=== PATIENT | male | born 1955 | race Caucasian/White ===

== ENCOUNTER → 2018-03-25 10:08 | Outpatient (CLI) | payer OTHER, SELFPAY ==
[2018-03-25 11:19] LABS: Add Manual Diff / Slide Review NO; Basophils Percent Auto 0.5 % (0-2); Eosinophils Percent Auto 3.9 % (2-4); Hematocrit 41.2 % (41-53); Lymphocytes Percent Auto 22.7 % (25-40); Mean Corpuscular Hemoglobin 31.1 PG (26-34); Mean Corpuscular Volume 91.6 fL (80-100); Monocytes Percent Auto 9.7 % (3-14); Neutrophils Absolute Auto 3600 /uL (3000-5900); Neutrophils Percent Auto 63.2 % (50-75); Platelet Count 208 X10^3/uL (150-400); Red Cell Distribution Width 13.5 % (11.6-14.8); White Blood Cell Count 5.7 X10^3/uL (4.5-11.0)
[2018-03-25 11:35] LABS: Alanine Aminotransferase 65 IU/L (21-72); Albumin 4.8 g/dL (3.5-5.0); Albumin Globulin Ratio 1.9 (1.0-2.8); Alkaline Phosphatase 74 U/L (38-126); Aspartate Aminotransferase 63 IU/L (17-59); BUN Creatinine Ratio 23.8 (6-22); Bilirubin Total 0.9 mg/dL (0.2-1.3); Blood Urea Nitrogen 19 mg/dL (9-20); Calcium 9.5 mg/dL (8.4-10.2); Carbon Dioxide 25 mmol/L (22-32); Chloride 105 mmol/L (98-107); Cholesterol 164 mg/dL (140-199); Estimated Glomerular Filt Rate > 60.0 mL/min (>60); Globulin 2.5 g/dL (1.7-4.1); Glucose 101 mg/dL (80-110); HDL Cholesterol 31 mg/dL (40-60); HEMOLYSIS 24 (0-50); LDL Cholesterol Calculated 99 mg/dL (<100); Sodium 143 mmol/L (137-145); Total Protein 7.3 g/dL (6.3-8.2); Triglycerides 172 mg/dL (35-150)
== END ==
PROVIDERS: Family Provider Internal Medicine; PCP Internal Medicine; Visit Provider Internal Medicine
DX: K75.81 Nonalcoholic steatohepatitis (NASH) (principal); M10.00 Idiopathic gout, unspecified site; E78.00 Pure hypercholesterolemia, unspecified
CPT/HCPCS: 36415; 80053; 80061; 84550; 85025

== ENCOUNTER → 2018-10-30 08:28 | Outpatient (CLI) | payer OTHER, SELFPAY ==
[2018-10-30 10:17] LABS: Alanine Aminotransferase 91 IU/L (21-72); Albumin 4.8 g/dL (3.5-5.0); Albumin Globulin Ratio 1.7 (1.0-2.8); Alkaline Phosphatase 74 U/L (38-126); Aspartate Aminotransferase 75 IU/L (17-59); BUN Creatinine Ratio 22.5 (6-22); Bilirubin Total 0.8 mg/dL (0.2-1.3); Blood Urea Nitrogen 18 mg/dL (9-20); Calcium 9.4 mg/dL (8.4-10.2); Carbon Dioxide 28 mmol/L (22-32); Chloride 104 mmol/L (98-107); Cholesterol 153 mg/dL (140-199); Estimated Glomerular Filt Rate > 60.0 mL/min (>60); Globulin 2.9 g/dL (1.7-4.1); Glucose 109 mg/dL (80-110); HDL Cholesterol 33 mg/dL (40-60); HEMOLYSIS < 15 (0-50); LDL Cholesterol Calculated 81 mg/dL (<100); Potassium 4.3 mmol/L (3.4-5.1); Sodium 142 mmol/L (137-145); Total Protein 7.7 g/dL (6.3-8.2); Triglycerides 196 mg/dL (35-150); Uric Acid 5.5 mg/dL (3.5-8.5)
== END ==
PROVIDERS: Visit Provider Internal Medicine
DX: M10.00 Idiopathic gout, unspecified site (principal); I10 Essential (primary) hypertension; E78.00 Pure hypercholesterolemia, unspecified
CPT/HCPCS: 36415; 80053; 80061; 84550

== ENCOUNTER → 2019-05-08 09:21 | Outpatient (CLI) | payer OTHER, SELFPAY ==
[2019-05-08 10:05] LABS: Alanine Aminotransferase 88 IU/L (21-72); Albumin 4.6 g/dL (3.5-5.0); Albumin Globulin Ratio 1.6 (1.0-2.8); Alkaline Phosphatase 73 U/L (38-126); Aspartate Aminotransferase 92 IU/L (17-59); BUN Creatinine Ratio 22.9 (6-22); Bilirubin Total 0.8 mg/dL (0.2-1.3); Blood Urea Nitrogen 16 mg/dL (9-20); Calcium 9.4 mg/dL (8.4-10.2); Carbon Dioxide 28 mmol/L (22-32); Chloride 104 mmol/L (98-107); Estimated Glomerular Filt Rate > 60.0 mL/min (>60); Globulin 2.9 g/dL (1.7-4.1); Glucose 110 mg/dL (80-110); HEMOLYSIS < 15 (0-50); Potassium 3.9 mmol/L (3.4-5.1); Sodium 141 mmol/L (137-145); Total Protein 7.5 g/dL (6.3-8.2); Uric Acid 5.7 mg/dL (3.5-8.5)
== END ==
PROVIDERS: Visit Provider Internal Medicine
DX: K75.81 Nonalcoholic steatohepatitis (NASH) (principal); M10.00 Idiopathic gout, unspecified site
CPT/HCPCS: 36415; 80053; 84550

== ENCOUNTER → 2020-03-18 10:10 | Outpatient (CLI) | payer OTHER, SELFPAY ==
[2020-03-18 11:39] LABS: Alanine Aminotransferase 127 IU/L (<50); Albumin 4.6 g/dL (3.5-5.0); Albumin Globulin Ratio 1.7 (1.0-2.8); Alkaline Phosphatase 81 U/L (38-126); Aspartate Aminotransferase 115 IU/L (17-59); BUN Creatinine Ratio 18.4 (6-22); Bilirubin Total 0.8 mg/dL (0.2-1.3); Blood Urea Nitrogen 14 mg/dL (9-20); Calcium 9.8 mg/dL (8.4-10.2); Carbon Dioxide 26 mmol/L (22-32); Chloride 104 mmol/L (98-107); Cholesterol 161 mg/dL (140-199); Estimated Glomerular Filt Rate > 60.0 mL/min (>60); Globulin 2.7 g/dL (1.7-4.1); Glucose 112 mg/dL (80-110); HDL Cholesterol 29 mg/dL (40-60); HEMOLYSIS < 15 (0-50); LDL Cholesterol Calculated 92 mg/dL (<100); Potassium 4.3 mmol/L (3.4-5.1); Sodium 139 mmol/L (137-145); Total Protein 7.3 g/dL (6.3-8.2); Triglycerides 199 mg/dL (35-150)
== END ==
PROVIDERS: PCP Internal Medicine; Referring Provider Internal Medicine; Visit Provider Internal Medicine
DX: E66.9 Obesity, unspecified (principal); K75.81 Nonalcoholic steatohepatitis (NASH)
CPT/HCPCS: 36415; 80053; 80061

== ENCOUNTER → 2020-06-13 08:51 | Outpatient (CLI) | payer OTHER, SELFPAY ==
[2020-06-13 09:46] LABS: Hemoglobin A1C% w Est Avg Glu 6.2 % (4.0-6.0)
[2020-06-13 09:54] LABS: Alanine Aminotransferase 79 IU/L (<50); Albumin 4.5 g/dL (3.5-5.0); Albumin Globulin Ratio 1.8 (1.0-2.8); Alkaline Phosphatase 78 U/L (38-126); Aspartate Aminotransferase 69 IU/L (17-59); BUN Creatinine Ratio 18.9 (6-22); Bilirubin Total 0.8 mg/dL (0.2-1.3); Blood Urea Nitrogen 14 mg/dL (9-20); Calcium 9.5 mg/dL (8.4-10.2); Carbon Dioxide 29 mmol/L (22-32); Chloride 105 mmol/L (98-107); Estimated Glomerular Filt Rate > 60.0 mL/min (>60); Globulin 2.5 g/dL (1.7-4.1); Glucose 107 mg/dL (80-110); HEMOLYSIS < 15 (0-50); Potassium 4.6 mmol/L (3.4-5.1); Sodium 140 mmol/L (137-145)
[2020-06-13 16:41] LABS: Hep C Virus Ab w/Reflex Quant NEGATIVE s/c (NEGATIVE)
== END ==
PROVIDERS: PCP Internal Medicine; Referring Provider Internal Medicine; Visit Provider Internal Medicine
DX: K75.81 Nonalcoholic steatohepatitis (NASH) (principal); I10 Essential (primary) hypertension
CPT/HCPCS: 36415; 80053; 83036; 86803

== ENCOUNTER → 2020-10-07 08:28 | Outpatient (CLI) | payer OTHER, SELFPAY ==
[2020-10-07 09:45] LABS: Hemoglobin A1C% w Est Avg Glu 6.5 % (4.0-6.0)
[2020-10-07 09:51] LABS: Alanine Aminotransferase 116 IU/L (<50); Albumin 4.7 g/dL (3.5-5.0); Albumin Globulin Ratio 1.6 (1.0-2.8); Alkaline Phosphatase 84 U/L (38-126); Aspartate Aminotransferase 87 IU/L (17-59); BUN Creatinine Ratio 21.7 (6-22); Bilirubin Total 0.7 mg/dL (0.2-1.3); Blood Urea Nitrogen 15 mg/dL (9-20); Calcium 9.5 mg/dL (8.4-10.2); Carbon Dioxide 27 mmol/L (22-32); Chloride 105 mmol/L (98-107); Estimated Glomerular Filt Rate > 60.0 mL/min (>60); Globulin 2.9 g/dL (1.7-4.1); Glucose 121 mg/dL (80-110); HEMOLYSIS < 15 (0-50); Potassium 4.2 mmol/L (3.4-5.1); Sodium 139 mmol/L (137-145); Total Protein 7.6 g/dL (6.3-8.2)
== END ==
PROVIDERS: PCP Internal Medicine; Referring Provider Internal Medicine; Visit Provider Internal Medicine
DX: E11.9 Type 2 diabetes mellitus without complications (principal); K75.81 Nonalcoholic steatohepatitis (NASH)
CPT/HCPCS: 36415; 80053; 83036

== ENCOUNTER → 2020-12-20 08:18 | Outpatient (CLI) | payer OTHER, SELFPAY ==
[2020-12-20 09:23] LABS: Alanine Aminotransferase 103 IU/L (<50); Albumin 4.5 g/dL (3.5-5.0); Albumin Globulin Ratio 1.9 (1.0-2.8); Alkaline Phosphatase 71 U/L (38-126); Aspartate Aminotransferase 80 IU/L (17-59); BUN Creatinine Ratio 25.7 (6-22); Bilirubin Total 0.5 mg/dL (0.2-1.3); Blood Urea Nitrogen 18 mg/dL (9-20); Calcium 9.8 mg/dL (8.4-10.2); Carbon Dioxide 28 mmol/L (22-32); Chloride 106 mmol/L (98-107); Cholesterol 235 mg/dL (140-199); Estimated Glomerular Filt Rate > 60.0 mL/min (>60); Globulin 2.4 g/dL (1.7-4.1); Glucose 113 mg/dL (80-110); HDL Cholesterol 34 mg/dL (40-60); HEMOLYSIS < 15 (0-50); LDL Cholesterol Calculated 141 mg/dL (<100); Potassium 4.5 mmol/L (3.4-5.1); Sodium 142 mmol/L (137-145); Total Protein 6.9 g/dL (6.3-8.2); Triglycerides 299 mg/dL (35-150)
== END ==
PROVIDERS: PCP Internal Medicine; Referring Provider Internal Medicine; Visit Provider Internal Medicine
DX: K75.81 Nonalcoholic steatohepatitis (NASH) (principal); E66.9 Obesity, unspecified; E11.9 Type 2 diabetes mellitus without complications; E78.2 Mixed hyperlipidemia
CPT/HCPCS: 36415; 80053; 80061

== ENCOUNTER → 2021-05-26 08:15 | Outpatient (CLI) | payer OTHER, SELFPAY ==
[2021-05-26 09:10] LABS: Add Manual Diff / Slide Review NO; Basophils Absolute Auto 100 /uL (0-100); Basophils Percent Auto 0.8 % (0-2); Eosinophils Absolute Auto 400 /uL (0-450); Eosinophils Percent Auto 5.3 % (2-4); Hematocrit 45.3 % (41-53); Hemoglobin 14.8 g/dL (13.5-17.5); Lymphocytes Absolute Auto 1900 /uL (1100-4500); Lymphocytes Percent Auto 27.9 % (25-40); Mean Corpuscular HGB Conc 32.7 % (30-36); Mean Corpuscular Hemoglobin 30.5 PG (26-34); Mean Corpuscular Volume 93.1 fL (80-100); Monocytes Absolute Auto 500 /uL (0-900); Monocytes Percent Auto 7.9 % (3-14); Neutrophils Absolute Auto 3900 /uL (1500-7000); Neutrophils Percent Auto 58.1 % (50-75); Platelet Count 211 X10^3/uL (150-400); Red Blood Cell Count 4.87 X10^6/uL (4.5-5.9); Red Cell Distribution Width 14.4 % (11.6-14.8); White Blood Cell Count 6.7 X10^3/uL (4.5-11.0)
[2021-05-26 09:29] LABS: Hemoglobin A1C% w Est Avg Glu 5.7 % (4.0-6.0)
[2021-05-26 10:07] LABS: Alanine Aminotransferase 48 IU/L (<50); Albumin 4.8 g/dL (3.5-5.0); Albumin Globulin Ratio 1.7 (1.0-2.8); Alkaline Phosphatase 67 U/L (38-126); Aspartate Aminotransferase 45 IU/L (17-59); BUN Creatinine Ratio 22.2 (6-22); Bilirubin Total 0.6 mg/dL (0.2-1.3); Blood Urea Nitrogen 16 mg/dL (9-20); Calcium 9.6 mg/dL (8.4-10.2); Carbon Dioxide 29 mmol/L (22-32); Chloride 105 mmol/L (98-107); Cholesterol 180 mg/dL (140-199); Estimated Glomerular Filt Rate > 60.0 mL/min (>60); Globulin 2.9 g/dL (1.7-4.1); Glucose 95 mg/dL (80-110); HDL Cholesterol 36 mg/dL (40-60); HEMOLYSIS 29 (0-50); LDL Cholesterol Calculated 95 mg/dL (<100); Potassium 4.3 mmol/L (3.4-5.1); Sodium 144 mmol/L (137-145); Total Protein 7.7 g/dL (6.3-8.2); Triglycerides 246 mg/dL (35-150)
== END ==
PROVIDERS: PCP Internal Medicine; Referring Provider Internal Medicine; Visit Provider Internal Medicine
DX: K75.81 Nonalcoholic steatohepatitis (NASH) (principal); E11.9 Type 2 diabetes mellitus without complications; G47.33 Obstructive sleep apnea (adult) (pediatric)
CPT/HCPCS: 36415; 80053; 80061; 83036; 85025

== ENCOUNTER → 2021-07-13 13:56 | Outpatient (CLI) | payer MEDICARE, OTHER, SELFPAY ==
--- NOTE | 2021-07-18 13:16 | DIAB.MNT ---
Initial Diabetes Medical Nutrition Therapy Assessment Name: Didier Richard (Bill) Date: 07/13/21 Time: 2-330p Dx: Type II Diabetes Preferred Learning Style: Watching, Reading, Hands-on Pedro presents today with , Nicole for initial assessment. Has received DM ed at [facility] in . Reports FH of DM on both sides of his family, most notably his father. States he has lost 30# since diagnosis, but he feels he has hit a plateau. Would like to lose another 20#. Diet Recall: 7a: cereal with milk, +/- toast with less sugar freezer ramsey (60-75g CHO) 12p: marinated chicken with carb balance tortilla, veggies OR home made 1c chili with 10-15 crackers OR soup with fruit (30-75g CHO) 4p: peanuts or popcorn or nut bar (0-30g CHO) 630-730p: stir daniel with tofu and brown rice or pasta (30-45g CHO) 8p: fruit or dark chocolate or cup cocoa with milk 1-2 x per week (15-30g CHO) Beverages: 80-100oz water, iced tea unsweetened during summer, diet coke 0-2 x per week Anthropometrics: Ht: 5'10 Wt: 243# (reported) Physical Activity: walks 3 x per week for 2 hours (5-7 mi) with HR of 130-150 per his report. Plans to start strength training at home. Self-Monitoring Blood Glucose: No currently checking. Was checking fasting and after meal occasionally. Reports FBG often in 90s mg/dL. Diabetes Medications: Metformin 500 mg daily Pertinent Labs: HgA1c 5.7% (05/2021) Past Medical History: T2DM No other history reported or on file Nutrition Rx: Carbohydrates: Meal:45g CHO Snack: 15-30g CHO Nutrition Diagnosis: - Excessive CHO intake r/t nutrition knowledge deficit aeb diet recall of some meals >60g Intervention: This participant was very receptive. Provided appropriate educational handouts. Discussed the following topics: Completed intake assessment. Discussed barriers to care. Great work he has done in bringing HgA1c down and weight loss Plans for resistance training, general reccs and safety Plate Method, carb counting, pairing macros Recommended servings for carbohydrates at meals and snacks Heart health nutrition Insights in food journaling Brainstormed appropriate breakfast ideas based on food preferences Created SMART goals for patient self-care and success. Goals: Keep a food journal Determine winter exercise plan Try a new breakfast Follow-up: SHELBY WOLF follow-up in 2-3 weeks eRnetta Castillo RDN, MARYANN Certified Diabetes Care and Seam Finisher P: [phone] Thank you for this referral
== END ==
PROVIDERS: PCP Internal Medicine; Referring Provider Internal Medicine; Visit Provider Internal Medicine
DX: E11.9 Type 2 diabetes mellitus without complications (principal)
CPT/HCPCS: 97802

== ENCOUNTER → 2021-08-10 14:01 | Outpatient (CLI) | payer MEDICARE, OTHER, SELFPAY ==
--- NOTE | 2021-08-11 16:02 | DIAB.FU ---
Follow-up Diabetes Education Assessment Name: Didier Richard Date: 08/10/21 Time: 2-3p Dx: Type II Diabetes Pedro continues weight loss efforts to manage diabetes. States he has not been able to be as active with changes in weather. Went from 360 min of walking weekly to 60 min of resistance training and maybe 90-120 min walking. has recently started going to the gym/pool for activity. Also has a treadmill that he does not use at home. considering use. Downloaded food tracking itz and is considering tracking food. has not started. Also looking for comfort food that is diabetes and heart healthy. Has tried to decreased carb intake at breakfast with yogurt OR eggs/toast meal, but continues to eat high carb cereal 4-5 x per week. Curious about carbs in oatmeal. Anthropometrics: Ht: 5'10 Wt: 243-244# reported Self-Monitoring Blood Glucose: Currently none. Diabetes Medications: Metformin 500 mg daily Pertinent Labs: HgA1c 5.7% (05/2021) Past Medical History: T2DM, obesity No other history reported or on file Intervention: This participant was very receptive. Provided appropriate educational handouts. Discussed the following topics: Breakfast ideas and impact on BG Benefits of tracking food for accountability (even short term) Physical activity plans for the winter and ways to increase activity Recipes resources: diabetes foodhub Review of general nutrition recommendations and current intake Created SMART goals for patient self-care and success. Goals: Keep a food journal- in progress Determine winter exercise plan- met Try a new breakfast- met Track food for one day on itz or on paper - new Walk indoor/outdoor for 3 hours per week safely- new Follow-up: SHELBY WOLF follow-up in October. Pedro would like to check-in in two weeks. Provided my contact info for any follow-up needs or concerns prior. Renetta Castillo RDN, MARYANN Certified Diabetes Care and Crate Builder P: [phone] Thank you for this referral
== END ==
PROVIDERS: PCP Internal Medicine; Referring Provider Internal Medicine; Visit Provider Internal Medicine
DX: E11.9 Type 2 diabetes mellitus without complications (principal); Z71.3 Dietary counseling and surveillance; Z79.84 Long term (current) use of oral hypoglycemic drugs
CPT/HCPCS: G0108

== ENCOUNTER → 2021-11-15 13:55 | Outpatient (CLI) | payer MEDICARE, OTHER, SELFPAY ==
--- NOTE | 2021-11-15 15:50 | DIAB.MNTFU ---
Follow-up Diabetes Medical Nutrition Therapy Assessment Name: Didier Richard Date: 11/15/21 Time: 205-255p Dx: Type II Diabetes Pedro presents to follow-up with his , Nicole. Reports plans for new HgA1c and labs this month. Sees new provider December [address] Robertson retired. Has made changes to meals with his . Nicole is doing [facility] nutrition program. Meals are low carb, except for breakfast; however breakfast has improved with incorporating a high protein low carb cereal with usual higher carb cereal. Avoids buying bread or eng muffins because this will often result in cereal + several pieces of bread with freezer jam. Cont to avoid keeping a food journal, though expresses desire to try this. Endorses feeling hesitation about what he may actually be eating and freq of snacking. Plans to start a veg garden and wonders what veggies to avoid. Endorses weight gain over the holidays, which he attributes to decrease in hiking and increase in kcals ie bread intake. Enjoys baking, thinking of taking a sour dough bread class. Anthropometrics: Ht: 5'10 Wt: 247# reported Physical Activity: Increased hikes since last visit with better weather and found an exercise class. hiking 2-3 x per week, considering increasing. Class 30 min 3 x per week for strength training. Noticing decreases in waist circumference with pant size. Self-Monitoring Blood Glucose: None Diabetes Medications: None Pertinent Labs:HgA1c 5.7% (05/2021) Past Medical History: T2DM, obesity No other history reported or on file Nutrition Rx: 1800kcals Carbohydrates: Meal:45g Snack:15-30g Nutrition Diagnosis: Self monitoring deficit r/t wanting to track however being weary of results of snacking frequency aeb pt report Intervention: This participant was very receptive. Provided appropriate educational handouts. Discussed the following topics: Protein contents of cereal Impact of LBM changes for insulin resistance garden veggies that are nonstarchy Impact of resistance training on health Tracking benefits and personal motivation and hesitation. Physical activity plan and progress Created SMART goals for patient self-care and success. Goals: Track food for one day on itz or on paper - not met / cont Walk indoor/outdoor for 3 hours per week safely- d/c with class Hike 3-4 x per week- new Continue classes 3 x per week- new Follow-up: SHELBY WOLF follow-up in January. Pt would like to follow-up in three months. Encouraged him to call with any questions or sooner follow-up needs prn. Renetta Castillo RDN, [facility] Certified Diabetes Care and Sec Accountant P: [phone] Thank you for this referral
== END ==
PROVIDERS: PCP Internal Medicine; Referring Provider Internal Medicine; Visit Provider Internal Medicine
DX: E11.9 Type 2 diabetes mellitus without complications (principal)
CPT/HCPCS: 97803

== ENCOUNTER → 2021-11-30 07:48 | Outpatient (CLI) | payer MEDICARE, OTHER, SELFPAY ==
[2021-11-30 09:49] LABS: Add Manual Diff / Slide Review NO; Basophils Absolute Auto 0 /uL (0-100); Basophils Percent Auto 0.7 % (0-2); Eosinophils Absolute Auto 400 /uL (0-450); Eosinophils Percent Auto 6.8 % (2-4); Lymphocytes Absolute Auto 1600 /uL (1100-4500); Lymphocytes Percent Auto 27.2 % (25-40); Mean Corpuscular HGB Conc 33.4 % (30-36); Mean Corpuscular Hemoglobin 30.8 PG (26-34); Mean Corpuscular Volume 92.1 fL (80-100); Monocytes Absolute Auto 500 /uL (0-900); Monocytes Percent Auto 8.6 % (3-14); Neutrophils Absolute Auto 3300 /uL (1500-7000); Neutrophils Percent Auto 56.7 % (50-75); Platelet Count 207 X10^3/uL (150-400); Red Blood Cell Count 4.56 X10^6/uL (4.5-5.9); Red Cell Distribution Width 13.9 % (11.6-14.8); White Blood Cell Count 5.9 X10^3/uL (4.5-11.0)
[2021-11-30 10:01] LABS: Hemoglobin A1C% w Est Avg Glu 5.7 % (4.0-6.0)
[2021-11-30 10:52] LABS: Alanine Aminotransferase 35 IU/L (<50); Albumin 4.7 g/dL (3.5-5.0); Albumin Globulin Ratio 1.9 (1.0-2.8); Alkaline Phosphatase 53 U/L (38-126); Aspartate Aminotransferase 40 IU/L (17-59); BUN Creatinine Ratio 25.3 (6-22); Bilirubin Total 0.8 mg/dL (0.2-1.3); Blood Urea Nitrogen 20 mg/dL (9-20); Calcium 9.2 mg/dL (8.4-10.2); Carbon Dioxide 26 mmol/L (22-32); Chloride 107 mmol/L (98-107); Estimated Glomerular Filt Rate > 60.0 mL/min (>60); Globulin 2.5 g/dL (1.7-4.1); Glucose 93 mg/dL (80-110); HEMOLYSIS 21 (0-50); Potassium 4.4 mmol/L (3.4-5.1); Sodium 140 mmol/L (137-145); Total Protein 7.2 g/dL (6.3-8.2); Uric Acid 5.7 mg/dL (3.5-8.5)
[2021-11-30 11:16] LABS: Thyroid Stimulating Hormone 4.92 uIU/mL (0.47-4.68)
[2021-11-30 11:24] LABS: Creatinine Urine Random 116.9 mg/dL
[2021-11-30 11:29] LABS: Microalbumin Urine Random < 0.6 mg/dL (0-1.6)
[2021-12-03 12:11] LABS: Cholesterol, Total 172 mg/dL (100-199); HDL-Cholesterol 35 mg/dL (>39); HDL-Particle (Total) 28.9 umol/L (>=30.5); LDL Particle 1373 nmol/L (<1000); LDL Size 20.3 nm (>20.5); LDL-Cholsterol 106 mg/dL (0-99); LP-IR Score 56 (<=45); Small LDL- Particle 838 nmol/L (<=527); Triglycerides 178 mg/dL (0-149)
== END ==
PROVIDERS: PCP Internal Medicine; Referring Provider Internal Medicine; Visit Provider Internal Medicine
DX: E78.2 Mixed hyperlipidemia (principal)
CPT/HCPCS: 36415; 80053; 80061; 82043; 82570; 83036; 83704; 84443; 84550; 85025

== ENCOUNTER → 2022-01-12 08:12 | Outpatient (CLI) | payer MEDICARE, OTHER, SELFPAY ==
--- NOTE | 2022-01-12 08:14 | DI.US.S_ITS ---
PROCEDURE: US ABD AORTA ANEURYSM SCREEN INDICATIONS: AAA SCREENING TECHNIQUE: Real time scanning was performed of the aorta and iliac arteries, with image documentation. COMPARISON: None. FINDINGS: Aorta: Proximal aortic diameter measures 3.1 cm. Mid-aorta measures 2.2 cm. Distal aortic diameter is 1.9 cm. Iliac arteries: Right common iliac artery measures 1.4 cm. Left common iliac artery measures 1.4 cm. IMPRESSION: 3.1 centimeter proximal abdominal aortic aneurysm. Recommend follow-up ultrasound in 3 years. Dictated by: Isha Heaton MD, PhD on 01/12/2022 at 14:27 Approved by: Isha Heaton MD, PhD on 01/12/2022 at 14:28
== END ==
PROVIDERS: PCP Internal Medicine; Referring Provider Internal Medicine; Visit Provider Internal Medicine
DX: Z13.6 Encounter for screening for cardiovascular disorders (principal); I71.4 Abdominal aortic aneurysm, without rupture
CPT/HCPCS: 76706

== ENCOUNTER → 2022-02-14 14:00 | Outpatient (CLI) | payer MEDICARE, OTHER, SELFPAY ==
--- NOTE | 2022-02-20 16:30 | DIAB.MNTFU ---
Follow-up Diabetes Medical Nutrition Therapy Assessment Name: Didier Bowman Date: 02/14/22 Time: 215-315p Dx: Type II Diabetes Pedro presents with his , Nicole for DM and wt management follow-up. Reports no changes in recent HgA1c, remains well managed. Has not tried food journal. Decided not to take bread makin gclass. Reports stress with family recently. Reports using mindfulness, usha, playing guitar, reading, and activity to manage stress. Denies any significant wt changes, but he continues to notice body comp changes by how his clothes fit and how his body looks. He is down another clothes size. Anthropometrics: Ht: 5'10 Wt: 245-248# reported Reported goal of -20# Physical Activity: Increased hiking to 5 x per week. Class 30 min 3 x per week for strength training. Yard work. Self-Monitoring Blood Glucose: None Diabetes Medications: None Pertinent Labs:HgA1c 5.7% Past Medical History: T2DM, obesity No other history reported or on file Nutrition Rx: 1800kcals Carbohydrates: Meal:45g Snack:15-30g Nutrition Diagnosis: Self monitoring deficit r/t wanting to track however being weary of results of snacking frequency aeb pt report Intervention: This participant was very receptive. Provided appropriate educational handouts. Discussed the following topics: Body changes: body comp vs weight Stress impact on health and stress management Plate Method review and portions Physical activity plan and progress Created SMART goals for patient self-care and success. Goals: Track food for one day on itz or on paper - not met / cont Hike 3-4 x per week- met Continue classes 3 x per week- met Measure food portions at meals- new obtain second referral if desire to cont RD visits next year- optional Follow-up: SHELBY WOLF follow-up prn. He would like to follow-up for accountability at the end of the year. Renetta Castillo, SHELBY, MARYANN Certified Diabetes Care and Global Marketing Specialist P: [phone] Thank you for this referral
== END ==
PROVIDERS: PCP Internal Medicine; Referring Provider Internal Medicine; Visit Provider Internal Medicine
DX: E11.9 Type 2 diabetes mellitus without complications (principal); Z71.3 Dietary counseling and surveillance
CPT/HCPCS: 97803

== ENCOUNTER → 2022-11-15 16:43 | Outpatient (CLI) | payer MEDICARE, OTHER, SELFPAY ==
--- NOTE | 2022-11-15 16:49 | DI.RAD.S_ITS ---
PROCEDURE: XR KNEE LT 3V INDICATIONS: Left knee pain TECHNIQUE: 3 views of the knee were acquired. COMPARISON: None. FINDINGS: Bones: No acute fractures or dislocations. Mild joint space narrowing and spurring of the patellofemoral compartment. Medial and lateral compartments not optimally evaluated, possible degenerative changes present Soft tissues: No joint effusion. No suspicious soft tissue calcifications. IMPRESSION: 1. No acute fracture identified. 2. Degenerative changes of the knee are present. 3. If symptoms persist, follow-up radiographs and/or CT or MRI may be helpful for further evaluation. Dictated by: Jayden Plummer M.D. on 11/16/2022 at 9:19 Approved by: Jayden Plummer M.D. on 11/16/2022 at 9:22
== END ==
PROVIDERS: PCP Internal Medicine; Referring Provider Internal Medicine; Visit Provider Internal Medicine
DX: S86.912A Strain of unspecified muscle(s) and tendon(s) at lower leg level, left leg, initial encounter (principal); X58.XXXA Exposure to other specified factors, initial encounter
CPT/HCPCS: 73562

== ENCOUNTER → 2023-04-12 08:57 | Outpatient (CLI) | payer MEDICARE, OTHER, SELFPAY ==
[2023-04-12 10:18] LABS: Hematocrit 40.6 % (41-53); Hemoglobin 13.6 g/dL (13.5-17.5); Mean Corpuscular HGB Conc 33.6 % (30-36); Mean Corpuscular Hemoglobin 30.6 PG (26-34); Mean Corpuscular Volume 91.2 fL (80-100); Platelet Count 228 X10^3/uL (150-400); Red Blood Cell Count 4.45 X10^6/uL (4.5-5.9); Red Cell Distribution Width 13.8 % (11.6-14.8); White Blood Cell Count 5.5 X10^3/uL (4.5-11.0)
[2023-04-12 10:20] LABS: Creatinine Urine Random 59.6 mg/dL
[2023-04-12 10:26] LABS: Microalbumin Urine Random < 0.6 mg/dL (0-1.6)
[2023-04-12 10:33] LABS: Alanine Aminotransferase 59 IU/L (<50); Albumin 4.4 g/dL (3.5-5.0); Albumin Globulin Ratio 1.8 (1.0-2.8); Alkaline Phosphatase 72 U/L (38-126); Aspartate Aminotransferase 55 IU/L (17-59); Bilirubin Total 0.8 mg/dL (0.2-1.3); Blood Urea Nitrogen 16 mg/dL (9-20); Carbon Dioxide 28 mmol/L (22-32); Chloride 102 mmol/L (98-107); Cholesterol 145 mg/dL (140-199); Estimated Glomerular Filt Rate > 60 mL/min (>60); Globulin 2.4 g/dL (1.7-4.1); Glucose 99 mg/dL (80-110); HDL Cholesterol 32 mg/dL (40-60); HEMOLYSIS < 15 (0-50); LDL Cholesterol Calculated 73 mg/dL (<100); Potassium 4.2 mmol/L (3.4-5.1); Sodium 141 mmol/L (137-145); Total Protein 6.8 g/dL (6.3-8.2); Triglycerides 201 mg/dL (35-150)
[2023-04-12 11:03] LABS: Prostate Specific Antigen 4.41 ng/mL (0.10-4.00)
[2023-04-13 04:12] LABS: Labcorp Hemoglobin (Hb) A1c 6.1 % (4.8-5.6)
== END ==
PROVIDERS: PCP Internal Medicine; Referring Provider Internal Medicine; Visit Provider Internal Medicine
DX: E03.9 Hypothyroidism, unspecified (principal); N40.0 Benign prostatic hyperplasia without lower urinary tract symptoms; E78.2 Mixed hyperlipidemia; E78.5 Hyperlipidemia, unspecified; M10.9 Gout, unspecified; E11.69 Type 2 diabetes mellitus with other specified complication
CPT/HCPCS: 36415; 80053; 80061; 82043; 82570; 83036; 84153; 84443; 85027

== ENCOUNTER → 2023-07-10 08:44 | Outpatient (CLI) | payer MEDICARE, OTHER, SELFPAY ==
[2023-07-13 00:04] LABS: PSA Free % 16.2 % (.); PSA, Total 4.2 ng/mL (0.0-4.0)
== END ==
PROVIDERS: PCP Internal Medicine; Referring Provider Internal Medicine; Visit Provider Internal Medicine
DX: R97.20 Elevated prostate specific antigen [PSA] (principal)
CPT/HCPCS: 36415; 84153; 84154

== ENCOUNTER → 2023-10-01 14:15 | Outpatient (CLI) | payer MEDICARE, OTHER, SELFPAY ==
[2023-10-01 19:45] LABS: Influenza A - CEPHEID Flu A NEGATIVE (NEGATIVE); Influenza B - CEPHEID Flu B NEGATIVE (NEGATIVE); Respiratory Syncytial Virus Negative (Negative)
[2023-10-01 19:49] LABS: COVID-19 CEPHEID 4-PLEX PCR Negative (Negative)
== END ==
PROVIDERS: PCP Internal Medicine; Visit Provider Physician Assistant
DX: R05.1 Acute cough (principal)
CPT/HCPCS: 0241U

== ENCOUNTER → 2023-10-01 14:16 | Outpatient (CLI) | payer MEDICARE, OTHER, SELFPAY ==
--- NOTE | 2023-10-01 14:18 | DI.RAD.S_ITS ---
PROCEDURE: XR CHEST 2V INDICATIONS: cough x 9 weeks, after covid TECHNIQUE: 2 views of the chest were acquired. COMPARISON: None. FINDINGS: Surgical changes and devices: None. Lungs and pleura: Lungs are clear. No pleural effusions or pneumothorax. Mediastinum: Mediastinal contours are normal. Heart size is normal. Bones and chest wall: No suspicious bony abnormalities. Soft tissues appear unremarkable. IMPRESSION: No acute cardiopulmonary abnormality is seen. Dictated by: Scott Fernandez M.D. on 10/01/2023 at 18:59 Approved by: Scott Fernandez M.D. on 10/01/2023 at 19:00
== END ==
PROVIDERS: PCP Internal Medicine; Referring Provider Physician Assistant; Visit Provider Physician Assistant
DX: R05.3 Chronic cough (principal)
CPT/HCPCS: 0241U; 71046

== ENCOUNTER → 2023-11-11 09:00 | Outpatient (CLI) | payer MEDICARE, OTHER, SELFPAY ==
[2023-11-11 10:45] LABS: Alanine Aminotransferase 81 IU/L (<50); Albumin 4.6 g/dL (3.5-5.0); Albumin Globulin Ratio 1.6 (1.0-2.8); Alkaline Phosphatase 72 U/L (38-126); Aspartate Aminotransferase 69 IU/L (17-59); BUN Creatinine Ratio 22.7 (6-22); Bilirubin Total 0.9 mg/dL (0.2-1.3); Blood Urea Nitrogen 20 mg/dL (9-20); Calcium 9.7 mg/dL (8.4-10.2); Carbon Dioxide 25 mmol/L (22-32); Chloride 107 mmol/L (98-107); Estimated Glomerular Filt Rate > 60 mL/min (>60); Globulin 2.8 g/dL (1.7-4.1); Glucose 116 mg/dL (80-110); HEMOLYSIS < 15 (0-50); Potassium 4.3 mmol/L (3.4-5.1); Sodium 143 mmol/L (137-145); Total Protein 7.4 g/dL (6.3-8.2)
[2023-11-15 13:36] LABS: PSA Free % 13.1 % (.); PSA, Total 3.5 ng/mL (0.0-4.0)
== END ==
PROVIDERS: PCP Internal Medicine; Referring Provider Internal Medicine; Visit Provider Internal Medicine
DX: E11.69 Type 2 diabetes mellitus with other specified complication (principal); E78.2 Mixed hyperlipidemia; E78.5 Hyperlipidemia, unspecified; R97.20 Elevated prostate specific antigen [PSA]
CPT/HCPCS: 36415; 80053; 83036; 84153; 84154

== ENCOUNTER → 2024-03-09 12:45 | Outpatient (CLI) | payer MEDICARE, OTHER, SELFPAY ==
[2024-03-09 14:13] LABS: Creatinine Urine Random 283.64 mg/dL
[2024-03-09 14:20] LABS: Microalbumin Urine Random 3.7 mg/dL (0-1.6)
[2024-03-09 15:26] LABS: TSH w/ Reflex to FT4 3.24 uIU/mL (0.47-4.68)
[2024-03-09 15:40] LABS: Aspartate Aminotransferase 107 IU/L (17-59); BUN Creatinine Ratio 17.9 (6-22); Blood Urea Nitrogen 17 mg/dL (9-20); Calcium 9.5 mg/dL (8.4-10.2); Carbon Dioxide 24 mmol/L (22-32); Chloride 107 mmol/L (98-107); Cholesterol 157 mg/dL (140-199); Estimated Glomerular Filt Rate > 60 mL/min (>60); Glucose 103 mg/dL (80-110); HDL Cholesterol 40 mg/dL (40-60); HEMOLYSIS < 15 (0-50); LDL Cholesterol Calculated 81 mg/dL (<100); Potassium 4.4 mmol/L (3.4-5.1); Sodium 142 mmol/L (137-145); Triglycerides 182 mg/dL (35-150)
[2024-03-09 16:10] LABS: Prostate Specific Antigen 4.14 ng/mL (0.10-4.00)
== END ==
PROVIDERS: PCP Internal Medicine; Referring Provider Internal Medicine; Visit Provider Internal Medicine
DX: E11.69 Type 2 diabetes mellitus with other specified complication (principal); R97.20 Elevated prostate specific antigen [PSA]; E78.5 Hyperlipidemia, unspecified; E78.2 Mixed hyperlipidemia
CPT/HCPCS: 36415; 80048; 80061; 82043; 82570; 83036; 84153; 84443; 84450

== ENCOUNTER → 2024-04-10 10:50 | Outpatient (CLI) | payer MEDICARE, OTHER, SELFPAY ==
[2024-04-10 11:55] LABS: BUN Creatinine Ratio 22.5 (6-22); Blood Urea Nitrogen 20 mg/dL (9-20); Calcium 9.6 mg/dL (8.4-10.2); Carbon Dioxide 22 mmol/L (22-32); Chloride 108 mmol/L (98-107); Estimated Glomerular Filt Rate > 60 mL/min (>60); Glucose 124 mg/dL (80-110); HEMOLYSIS < 15 (0-50); Potassium 4.2 mmol/L (3.4-5.1); Sodium 141 mmol/L (137-145)
== END ==
PROVIDERS: PCP Internal Medicine; Referring Provider Internal Medicine; Visit Provider Internal Medicine
DX: I10 Essential (primary) hypertension (principal)
CPT/HCPCS: 36415; 80048

== ENCOUNTER → 2024-07-15 09:24 | Outpatient (CLI) | payer MEDICARE, OTHER, SELFPAY ==
[2024-07-15 10:18] LABS: Hemoglobin A1C% w Est Avg Glu 6.2 % (4.0-6.0)
[2024-07-15 10:31] LABS: Alanine Aminotransferase 94 IU/L (<50); Albumin 4.5 g/dL (3.5-5.0); Albumin Globulin Ratio 1.9 (1.0-2.8); Alkaline Phosphatase 71 U/L (38-126); Aspartate Aminotransferase 85 IU/L (17-59); BUN Creatinine Ratio 17.6 (6-22); Bilirubin Total 0.6 mg/dL (0.2-1.3); Blood Urea Nitrogen 15 mg/dL (9-20); Calcium 9.5 mg/dL (8.4-10.2); Carbon Dioxide 26 mmol/L (22-32); Chloride 105 mmol/L (98-107); Estimated Glomerular Filt Rate > 60 mL/min (>60); Globulin 2.4 g/dL (1.7-4.1); Glucose 109 mg/dL (80-110); HEMOLYSIS < 15 (0-50); Potassium 4.8 mmol/L (3.4-5.1); Sodium 139 mmol/L (137-145); Total Protein 6.9 g/dL (6.3-8.2)
== END ==
PROVIDERS: PCP Internal Medicine; Referring Provider Internal Medicine; Visit Provider Internal Medicine
DX: E11.69 Type 2 diabetes mellitus with other specified complication (principal); K75.81 Nonalcoholic steatohepatitis (NASH); E78.5 Hyperlipidemia, unspecified
CPT/HCPCS: 36415; 80053; 83036

== ENCOUNTER → 2024-08-02 11:08 | Outpatient (CLI) | payer MEDICARE, OTHER, SELFPAY ==
--- NOTE | 2024-08-02 11:10 | DI.RAD.S_ITS ---
PROCEDURE: XR TIBIA FUBULA RT 2V INDICATIONS: Twisted ankle TECHNIQUE: 2 views of the tibia and fibula were acquired. COMPARISON: None. FINDINGS: Bones: Mildly displaced comminuted fracture of the lateral malleolus and posterior malleolus with possible nondisplaced fracture of the right fibular head. Soft tissues: No suspicious soft tissue calcifications or masses. IMPRESSION: Mildly displaced fractures of the lateral and posterior malleoli and possible nondisplaced fracture of the right fibular head. Dictated by: Raghavendra Dotson M.D. on 08/02/2024 at 18:37 Approved by: Raghavendra Dotson M.D. on 08/02/2024 at 18:38
--- NOTE | 2024-08-02 11:10 | DI.RAD.S_ITS ---
PROCEDURE: XR ANKLE RT MIN 3V INDICATIONS: Twisted ankle TECHNIQUE: 3 views of the ankle were acquired. COMPARISON: None. FINDINGS: Bones: Minimally displaced fractures involving the posterior malleolus and lateral malleolus. No significant widening of the ankle mortise. Plantar calcaneal and retrocalcaneal enthesophytes. Soft tissues: No significant tibiotalar joint effusion. Achilles tendon appears normal. Moderate soft tissue swelling of the right ankle. IMPRESSION: Minimally displaced fractures of the posterior and lateral malleolus. Dictated by: Raghavendra Dotson M.D. on 08/02/2024 at 18:33 Approved by: Raghavendra Dotson M.D. on 08/02/2024 at 18:37
== END ==
PROVIDERS: PCP Internal Medicine; Referring Provider Nurse Practitioner Family; Visit Provider Nurse Practitioner Family
DX: S82.841A Displaced bimalleolar fracture of right lower leg, initial encounter for closed fracture (principal); S96.911A Strain of unspecified muscle and tendon at ankle and foot level, right foot, initial encounter; M79.669 Pain in unspecified lower leg
CPT/HCPCS: 73590; 73610

== ENCOUNTER → 2024-08-05 10:12 | Outpatient (CLI) | payer MEDICARE, OTHER, SELFPAY ==
--- NOTE | 2024-08-05 10:14 | DI.CT.S_ITS ---
PROCEDURE: CT LE RT WO CON INDICATIONS: Other fracture of unspecified lower leg, initial e TECHNIQUE: Noncontrast 3-mm axial sections acquired from the distal tibial shaft to the talar dome, with coronal and sagittal reformats.. COMPARISON: [facility], CR, XR TIBIA FIBULA RT 2V, 08/02/2024, 11:09. [facility], CR, XR ANKLE RT MIN 3V, 08/02/2024, 11:09. FINDINGS: Image quality: Excellent. Bones: Acute, comminuted Corea C distal fibular fracture (3/203) with a maximum 0.7 cm of posterior displacement of the dominant distal fracture fragment (4/29). Acute, minimally displaced medial/posterior malleolar fracture (3/199) with a trapped 0.6 cm cortical fragment at the superior aspect of the fracture gap (3/199; 4/73). There is 0.3 cm of articular surface impaction at the posterior tibiotalar joint surface secondary to the superiorly displaced posterior malleolar fracture fragment (4/48). Chronic heterotopic ossification is present at the tip of the lateral malleolus (3/186). Joints: Multiple small osseous fragments are present along the posterior aspects of the talar dome (4/39-75; 3/191-196). There is no significant widening of the ankle mortise on the provided images. There is a moderate tibiotalar hemarthrosis. 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 There is no abnormal widening at the Lisfranc interval. Muscles: Mild diffuse muscle atrophy. Tendons: The visualized flexor and extensor tendon contours are within normal limits. The Achilles tendon is within normal limits. Vessels: No aneurysmal dilatation of the visualized vasculature. Other soft tissues: Diffuse subcutaneous edema is present at the level of the ankle and dorsum of the midfoot Other: Achilles and plantar calcaneal enthesopathy (4/73). IMPRESSION: 1. Acute trimalleolar fracture with 0.3 cm posterior tibiotalar articular surface impaction, intra-articular osseous fragments, moderate hemarthrosis, and a trapped cortical fragment at the superior-posterior malleolar fracture margin. 2. No CT evidence of tendinum entrapment. Dictated by: Frederic Stephenson M.D. on 08/05/2024 at 15:25 Approved by: Frederic Stephenson M.D. on 08/05/2024 at 15:46
== END ==
PROVIDERS: PCP Internal Medicine; Referring Provider Orthopaedic Surgery Foot and Ankle Surgery; Visit Provider Orthopaedic Surgery Foot and Ankle Surgery
DX: S82.851A Displaced trimalleolar fracture of right lower leg, initial encounter for closed fracture (principal); X58.XXXA Exposure to other specified factors, initial encounter
CPT/HCPCS: 73700

== ENCOUNTER 2024-08-19 09:31 | Day surgery (SDC) | payer MEDICARE, OTHER, SELFPAY ==
[2024-08-13 10:30] VITALS: BMI 37.3
--- NOTE | 2024-08-19 | DI.RAD.S_ITS ---
PROCEDURE: XR ANKLE RT MIN 3V INDICATIONS: ORIF RIGHT ANKLE TECHNIQUE: Intraoperative right ankle images COMPARISON: , , XR ANKLE RT MIN 3V, 08/02/2024, 11:09. FINDINGS: Intraoperative images demonstrate internal fixation of a trimalleolar fracture. The total fluoroscopic time was 2 minutes. IMPRESSION: Intraoperative images of trimalleolar fracture fixation. Please see the operative report for further details. Dictated by: Frederic Stephenson M.D. on 08/19/2024 at 20:15 Approved by: Frederic Stephenson M.D. on 08/19/2024 at 20:17
[2024-08-19 10:19] VITALS: BMI 36.9
[2024-08-19 10:27] VITALS: BP 167/79; PULSE 68; RESP 16; TEMP 36.9; O2SAT 97
[2024-08-19] MEDS: CELECOXIB 200 MG CAPSULE 400 MG PO (10:44)
[2024-08-19] MEDS: LACTATED RINGERS 1,000 ML 42 ML IV (10:46)
--- NOTE | 2024-08-19 11:14 | PM.PREOP ---
Pre-operative Note Interval Note History & Physical reviewed/Exam performed by Physician: Yes Changes to H&P: No
--- NOTE | 2024-08-19 12:04 | SUR.PREOP ---
Block start time 1137 with a time out. Monitoring initiated and maintained throughout procedure. Medications given by anesthesia provider. Patient remained stable throughout procedure, no adverse reactions noted. Block end time 1155.
[2024-08-19] MEDS: CEFAZOLIN VIAL 3 GM in SODIUM CHLORIDE 0.9% 100 ML IV (12:15)
--- NOTE | 2024-08-19 12:28 | SUR.OPER ---
Prone on padded OR bed, head in foam head support, gel chest rolls, gel pad under knees, bump under lower legs, non operative leg taped down, toes free of pressure, arms secured on padded arm boards at <90 degrees abduction. Safety belt mid back.
[2024-08-19] MEDS: BUPIVACAINE 0.25% (PF) 30 ML, EPINEPHrine 0.15 MG INJ (12:37)
[2024-08-19] MEDS: SODIUM CHLORIDE 0.9% 1,000 ML 84 ML IV (14:00)
[2024-08-19 14:23] VITALS: BP 91/57; PULSE 87; RESP 11; TEMP 36.4; O2SAT 92
[2024-08-19 14:28] VITALS: BP 110/58; PULSE 77; RESP 12; O2SAT 95
[2024-08-19 14:33] VITALS: BP 112/60; PULSE 76; RESP 12; TEMP 36.1; O2SAT 95
[2024-08-19 14:42] VITALS: BP 114/63; PULSE 73; RESP 14; O2SAT 95
--- NOTE | 2024-08-19 14:43 | PM.OP.1 ---
Operative Date/Time/Diagnoses Date of procedure: 08/19/24 Time of procedure: 12:42 Pre-op diagnosis: Right tibia and fibula distal fractures, tibial pilon fracture and distal fibula fracture. Syndesmotic disruption Post-op diagnosis: same Procedure & Clinicians Procedure: 1. Open reduction internal fixation distal tibia and fibula pilon fracture right CPT code 06884 2. Open reduction internal fixation right ankle syndesmosis CPT code 56696 Same procedure as scheduled: Yes Indications: The patient was a 69-year-old male that sustained a displaced comminuted distal tibial plafond fracture as well as distal fibula fracture and syndesmotic disruption. He was indicated for open reduction internal fixation of his intra-articular fracture to reduce the risk of posttraumatic arthritis. This indicated for open reduction internal fixation of the distal tibia and fibula fractures as well as ORIF of the syndesmosis. The risks and benefits of the procedure have been discussed with the patient and given the opportunity to ask questions. The risks of surgery include but are not limited to infection, malunion, nonunion, persistence of pain, damage to nerves and blood vessels, posttraumatic arthritis, DVT, PE, coardiopulmonary complications and . The patient expressed a thorough understanding of the risks and benefits of surgery and has elected to proceed. Consent was signed in the office today. During the operation, the services of a physician pharmacy affairs assistant were medically indicated and necessary to provide the exposure of the operative site for the surgical procedure and to maintain the limb in a proper position to carry out the operation safely and efficiently. Without a qualified certified physician assistant being present this would extended the operative procedure and made the procedure technically more difficult to perform. Surgeon: Cris Mayen Lead Shipper: Martha Aguirre Anesthesia Type: General, Peripheral nerve block and Local Operative Notes Findings: Posterior pilon injury with posteromedial and posterolateral fragments. These were booked open reduced and stabilized with a posterior pilon plate from the Arthrex. A posterolateral approach was extended and curved more anterior and distally to laterally approach the fibula and allow access to the wax staff and Chaput comminution disrupting the anterior syndesmosis. Fibula was stabilized with a lateral locking plate from the Arthrex set and the anterior ATFL was reconstructed using the Arthrex internal brace. Closure Type: primary Specimen(s): none sent Prosthetic devices, grafts, tissues, transplants, or devices: Arthrex posterior pilon plate with 3.5 locking nonlocking screws and 2.8 locking screws Arthrex lateral locking anatomic distal fibula plate locking and nonlocking screws Arthrex 4.75 SwiveLock and FiberTape for syndesmotic fixation, AITFL Estimated Blood Loss (mL): 30 Blood products transfused: none Tourniquet time (min): 86 Procedure in detail: Patient was seen in the preoperative area the site of surgery was marked informed consent confirmed this was the right ankle. The patient underwent a preoperative block with the anesthesia team for postoperative pain control. Patient was taken to the operating room and general anesthetic was administered. The patient was then positioned prone on the operative table with all bony prominences well padded and a well-padded thigh tourniquet in place. The right lower extremity was prepped and draped in the standard sterile fashion a formal time-out procedure was performed confirming the patient's side and site of surgery administration of appropriate preoperative antibiotic. All were in agreement. Attention turned to the right ankle the Esmarch was used for exsanguination the tourniquet raised on the thigh to 250 mm of mercury. A posterolateral incision was made just cheating slightly more towards the fibula then [facility] between the Achilles and the fibula care was taken with the dissection looking out for the sural nerve. This was posterior to the incision and not visualized in the dissection. Dissection was taken down to the fascia between the FHL and the peroneal tendons. The FHL was swept medially and the peroneal tendons kept in the sheath laterally dissection was taken down onto the back of the tibia. The posterolateral and posteromedial tibial plafond fractures were identified. The posterolateral spike was more displaced the but these were open booked and then reduced and pinned in place and checked under fluoroscopy. There was soft callus present as this fracture was about 2-week-old and this did take time for mobilization. Once the satisfactory alignment was obtained a posterior pilon plate from the Arthrex set was fit to the back of the ankle and positioned in place. X-rays were taken confirming appropriate alignment then this was placed down to bone with a nonlocking screw through the oblong hole followed by locking screws. Care was taken to make sure there was no hardware prominence. Once the tibia ORIF was complete attention was then turned to the distal fibula. The dissection was curved more anteriorly and distally to expose the lateral distal fibula and dissection was taken down to bone anterior to the peroneal tendons which again were kept in the sheath. The fracture callus was cleaned and the distal fibula fracture was mobilized brought out to length and then pinned in place with a K-wire. There was comminution involving a wax staff as well as the Chaput fragment of the tibia demonstrating the syndesmotic disruption. The ankle joint entered through the anterolateral arthrotomy and irrigated and observed. No obvious osteochondral lesions. Debride from the syndesmotic injury was removed. A FiberTape was loaded into the lateral locking plate and this was placed down to bone along the fibula and provisionally fixed checked on fluoroscopy and then finally fixed with nonlocking and locking screws. Next the syndesmotic repair was undertaken. A anatomic repair of the ATFL was completed using the FiberTape and a 4.5 swivel lock screw from the Arthrex set. The drill was used into the tibia at the Chaput fragment and then this was tapped. The FiberTape was loaded on the 4.75 SwiveLock and this was placed into the distal tibia forming the syndesmotic ligament through the plate on the fibula and into the bone on the tibia. This was secure once fixation was complete. The suture and fiber tape remnants were then brought back through the plate and tied over for additional strength of repair. Once this was completed tourniquet was released hemostasis was achieved. Final intraoperative fluoroscopic images demonstrated appropriate alignment and reduction of the mortise and stability. Wounds were closed with 2-0 Vicryl 4-0 Monocryl and 3-0 nylon suture. 30 cc of 0.25% Marcaine with epinephrine was injected for local anesthesia. Sterile dressing with Xeroform gauze Webril jump-start and a posterior and U splint in neutral dorsiflexion was applied. The patient was woken from anesthesia and taken to recovery room in good condition there were no immediate complications from this procedure. Counts were correct. Complications: none Post-operative Condition: stable Disposition: PACU Plan for aftercare: Nonweightbearing or touchdown for balance x6 weeks. Follow up in Orthopedic Clinic in 2-3 weeks for suture removal with Dr. Mayen. Aspirin for DVT prophylaxis.
[2024-08-19 14:55] VITALS: BP 113/71; PULSE 72; RESP 12; O2SAT 97
== END 2024-08-19 15:25 | disposition home or self-care (01) ==
PROVIDERS: PCP Internal Medicine; Referring Provider Orthopaedic Surgery Foot and Ankle Surgery; Visit Provider Orthopaedic Surgery Foot and Ankle Surgery
PROC: 0SSF04Z Reposition Right Ankle Joint with Internal Fixation Device, Open Approach (ICD-10-PCS; CPT 27828; principal; 2024-08-19 11:15)
DX: S82.871A Displaced pilon fracture of right tibia, initial encounter for closed fracture (principal); S93.431A Sprain of tibiofibular ligament of right ankle, initial encounter; W10.8XXA Fall (on) (from) other stairs and steps, initial encounter; I10 Essential (primary) hypertension; E11.9 Type 2 diabetes mellitus without complications; Z87.891 Personal history of nicotine dependence; Z79.84 Long term (current) use of oral hypoglycemic drugs; G89.18 Other acute postprocedural pain
CPT/HCPCS: 27828; 27829; 64450; 73610; 76000; 82962; C1713; J0171; J0330; J0690; J1100; J2250; J2405; J2704; J3010

== ENCOUNTER → 2024-11-03 08:59 | Outpatient (CLI) | payer MEDICARE, OTHER, SELFPAY ==
[2024-11-03 10:01] LABS: Hemoglobin A1C% w Est Avg Glu 5.6 % (4.0-6.0)
[2024-11-03 10:17] LABS: BUN Creatinine Ratio 21.4 (6-22); Blood Urea Nitrogen 18 mg/dL (9-20); Calcium 9.5 mg/dL (8.4-10.2); Carbon Dioxide 27 mmol/L (22-32); Chloride 103 mmol/L (98-107); Estimated Glomerular Filt Rate > 60 mL/min (>60); Glucose 108 mg/dL (80-110); HEMOLYSIS < 15 (0-50); Potassium 4.6 mmol/L (3.4-5.1); Sodium 142 mmol/L (137-145)
[2024-11-03 10:48] LABS: Prostate Specific Antigen 3.76 ng/mL (0.10-4.00)
== END ==
LOC: LAB 09:00
PROVIDERS: PCP Internal Medicine; Referring Provider Internal Medicine; Visit Provider Internal Medicine
DX: E11.69 Type 2 diabetes mellitus with other specified complication (principal); R97.20 Elevated prostate specific antigen [PSA]; E78.5 Hyperlipidemia, unspecified
CPT/HCPCS: 36415; 80048; 83036; 84153

== ENCOUNTER → 2024-11-18 16:19 | Outpatient (CLI) | payer MEDICARE, OTHER, SELFPAY ==
[2024-11-18 16:45] LABS: Appearance Urine UA CLEAR; Bilirubin Urine UA NEGATIVE (NEGATIVE); Color Urine UA YELLOW; Glucose Urine UA NEGATIVE (Negative); Ketones Urine UA NEGATIVE (NEGATIVE); Leukocyte Esterase Urine UA TRACE (NEGATIVE); Nitrite Urine UA NEGATIVE (Negative); Occult Blood Urine UA 3+ (Negative); Protein Urine UA 1+ (Negative); Specific Gravity Urine UA >=1.030 (1.000-1.035); Urobilinogen Urine UA 0.2 E.U./dL (0.2); pH Urine UA 5.5 (4.5-8.0)
[2024-11-18 16:53] LABS: Bacteria Urine Few (2-10); RBC Urine 1-5/HPF (0-5/HPF); Squamous Epithelial Cell Urine 1-5 /HPF (0-5/HPF); Urine Volume 10mL (spun); WBC Urine 5-10/HPF (0-5/HPF)
== END ==
PROVIDERS: PCP Internal Medicine; Referring Provider Internal Medicine; Visit Provider Internal Medicine
DX: N41.0 Acute prostatitis (principal)
CPT/HCPCS: 81001

== ENCOUNTER → 2024-11-19 08:54 | Outpatient (CLI) | payer MEDICARE, OTHER, SELFPAY | PROVIDERS: PCP Internal Medicine; Visit Provider Internal Medicine | DX: R82.71 Bacteriuria (principal) | CPT/HCPCS: 87086 ==

== ENCOUNTER → 2025-05-24 08:33 | Outpatient (CLI) | payer MEDICARE, OTHER, SELFPAY ==
[2025-05-24 09:40] LABS: Hemoglobin A1C% w Est Avg Glu 6.3 % (4.0-6.0)
[2025-05-24 09:49] LABS: Alanine Aminotransferase 76 IU/L (<50); Albumin 4.6 g/dL (3.5-5.0); Albumin Globulin Ratio 1.8 (1.0-2.8); Alkaline Phosphatase 65 U/L (38-126); Blood Urea Nitrogen 15 mg/dL (9-20); Calcium 9.1 mg/dL (8.4-10.2); Carbon Dioxide 27 mmol/L (22-32); Chloride 104 mmol/L (98-107); Cholesterol 150 mg/dL (140-199); Estimated Glomerular Filt Rate > 60 mL/min (>60); Globulin 2.5 g/dL (1.7-4.1); Glucose 102 mg/dL (70-99); HDL Cholesterol 36 mg/dL (40-60); HEMOLYSIS < 15 (0-50); Potassium 4.2 mmol/L (3.4-5.1); Sodium 140 mmol/L (137-145); Total Protein 7.1 g/dL (6.3-8.2); Triglycerides 263 mg/dL (35-150)
[2025-05-24 10:09] LABS: TSH w/ Reflex to FT4 4.30 uIU/mL (0.47-4.68)
== END ==
PROVIDERS: PCP Internal Medicine; Referring Provider Internal Medicine; Visit Provider Internal Medicine
DX: E11.69 Type 2 diabetes mellitus with other specified complication (principal); E78.5 Hyperlipidemia, unspecified; E03.9 Hypothyroidism, unspecified; E78.2 Mixed hyperlipidemia
CPT/HCPCS: 36415; 80053; 80061; 83036; 84443

== ENCOUNTER → 2025-08-16 08:16 | Outpatient (CLI) | payer MEDICARE, OTHER, SELFPAY ==
[2025-08-16 10:15] LABS: Hemoglobin A1C% w Est Avg Glu 5.9 % (4.0-6.0)
[2025-08-16 10:32] LABS: Alanine Aminotransferase 77 IU/L (<50); Albumin 4.6 g/dL (3.5-5.0); Albumin Globulin Ratio 1.9 (1.0-2.8); Alkaline Phosphatase 70 U/L (38-126); Blood Urea Nitrogen 20 mg/dL (9-20); Calcium 9.1 mg/dL (8.4-10.2); Carbon Dioxide 23 mmol/L (22-32); Chloride 106 mmol/L (98-107); Estimated Glomerular Filt Rate > 60 mL/min (>60); Globulin 2.4 g/dL (1.7-4.1); Glucose 96 mg/dL (70-99); HEMOLYSIS < 15 (0-50); Potassium 4.2 mmol/L (3.4-5.1); Sodium 142 mmol/L (137-145); Total Protein 7.0 g/dL (6.3-8.2)
== END ==
PROVIDERS: PCP Internal Medicine; Referring Provider Internal Medicine; Visit Provider Internal Medicine
DX: E11.69 Type 2 diabetes mellitus with other specified complication (principal); E78.5 Hyperlipidemia, unspecified
CPT/HCPCS: 36415; 80053; 82043; 82570; 83036